=== PATIENT | male | born 1985 | race Caucasian/White ===

== ENCOUNTER 2021-02-19 07:57 | Emergency (ER) | payer OTHER, SELFPAY ==
[~2021-02-19] VITALS: Ht 180.3 cm; Wt 79.0 kg
[2021-02-19 08:10] VITALS: BP 137/79
--- NOTE | 2021-02-19 08:10 | NUR ---
Pt triaged, changed into pt gown, continues to have leg irons and wrist irons on and attached by CO's from [facility]. IV started for possible need for procedural sedation in future with labs drawn in case wants labs after exam.
[2021-02-19] MEDS ORDERED: HYDROmorphone 1 MG/ML, 1ML INJ IVPush PRN (08:30)
[2021-02-19] MEDS ORDERED: LIDOCAINE 2%, 20ML INFIL ONE (08:30)
[2021-02-19] MEDS ORDERED: PLEASE ENTER ALLERGIES MC SCH (08:30)
[2021-02-19] MEDS ORDERED: ONDANSETRON 2MG/ML, 2ML IVPush ONE (08:30)
[2021-02-19] MEDS ORDERED: LIDOCAINE-MPF 2% ,5ML ONE ×2 (08:44→08:52)
[2021-02-19] MEDS ORDERED: ONDANSETRON 2MG/ML, 2ML ONE (08:45)
[2021-02-19] MEDS ORDERED: HYDROmorphone 1 MG/ML, 1ML INJ ONE (08:45)
--- NOTE | 2021-02-19 08:53 | NUR ---
Pt medicated for pain and nausea premedication with Lidocaine at bedside. MD arrived at this time for procedure.
--- NOTE | 2021-02-19 09:18 | NUR ---
MD at bedside again at this time. States he needs procedural sedation to reduce. Orders being placed now.
[2021-02-19] MEDS ORDERED: PROPOFOL 10 MG/ML, 20ML IVPush ONE (09:30)
[2021-02-19] MEDS ORDERED: PROPOFOL 10 MG/ML, 20ML ONE (09:40)
--- NOTE | 2021-02-19 09:50 | NUR ---
MD at bedside for sedation along with trauma RN for assistance to MD. Pt on compliance monitor, ETCO2 NC with monitoring and NS 1 liter at TKO attached to IV site, running well. Consent signed and preprocedure checks completed. See sedation packet for all other procedural documentation.
== END 2021-02-19 10:52 | disposition home or self-care (01) ==
LOC: ED 09:14
DX: S43.005A Unspecified dislocation of left shoulder joint, initial encounter (principal); X58.XXXA Exposure to other specified factors, initial encounter; Y93.89 Activity, other specified; Y92.89 Other specified places as the place of occurrence of the external cause; Y99.8 Other external cause status
CPT/HCPCS: 23650; 73020; 96374; 96375; 99285; J1170; J2405